=== PATIENT | female | born 1990 | race Caucasian/White ===

== ENCOUNTER → 2021-05-21 | Day surgery (SDC) | payer OTHER ==
[2021-05-21] VITALS (8 sets, daily range): BP systolic 108–114; BP diastolic 52–70
[~2021-05-21] VITALS: Ht 162.5 cm; Wt 83.0 kg
[~2021-05-21] MED LIST: GLUCAGON EMERGENCY 1 MG/KIT IV ONE; LACTATED RINGERS 1,000 ML IV PRN; LIDOCAINE PF 2% 5 ML (XYLOCAINE) VIAL ONE; ONDA4TAB11 PO; ONDANSETRON 4 MG/2 ML (SDV) Z0FRAN IVP ONE; ONDANSETRON 4 MG/2 ML (SDV) Z0FRAN ONE; ROCURONIUM 10 MG/ML 5 ML SYRINGE IV ONE; SEVOFLURANE (ULTANE) 15 ML INHAL SOLN ONE; SUCCINYLCHOLINE INJ 100 MG/5 ML SYR/VIAL ONE; proPOfol 200 MG/20 ML (DIPRIVAN) VIAL IV ONE
[2021-05-21 09:00] LABS: BASOPHILS % (AUTO) 0 % (0-10); EOSINOPHILS % (AUTO) 0 % (0-10); HEMATOCRIT 33 % (35-52); HEMOGLOBIN 11.6 g/dL (11.5-16.0); LYMPHOCYTES # (AUTO) 1.3 10^3/uL (1.0-4.0); LYMPHOCYTES % (AUTO) 22 % (12-44); MEAN CORPUSCULAR HEMOGLOBIN 29 pg (25-34); MEAN CORPUSCULAR HGB CONC 35 g/dL (32-36); MEAN CORPUSCULAR VOLUME 84 fL (80-99); MEAN PLATELET VOLUME 10.2 fL (9.0-12.2); MONOCYTES # (AUTO) 0.3 10^3/uL (0.0-1.0); MONOCYTES % (AUTO) 6 % (0-12); NEUTROPHILS # (AUTO) 4.2 10^3/uL (1.8-7.8); NEUTROPHILS % (AUTO) 71 % (42-75); PLATELET COUNT 175 10^3/uL (130-400); WHITE BLOOD COUNT 5.9 10^3/uL (4.3-11.0)
--- NOTE | 2021-05-21 09:01 | ED GI ---
General Stated Complaint: STEAK STUCK IN THROAT Source of Information: Patient Exam Limitations: No Limitations History of Present Illness Date Seen by Provider: May 21, 2021 Time Seen by Provider: 08:39 Initial Comments Patient to the ER by private conveyance from home with chief complaint of eating some steak last night at dinner and it became lodged. She has not been able to get any water to go down and stay down it immediately comes back up. She is not having any nausea. She not take any pills or medicines for it. She typically takes venlafaxine and vitamins. She is otherwise healthy G5, P4 at 17 weeks with an EDC of October 29, 2021. care is in [facility] where she lives. She has never had surgery or endoscopy before. She denies nausea. She has a mild headache and some pressure in her chest but no significant pain. Allergies and Home Medications Allergies Coded Allergies: No Known Drug Allergies (Unverified , 05/21/21) Patient Home Medication List Home Medication List Reviewed: Yes Review of Systems Review of Systems Constitutional: No chills, No diaphoresis EENTM: No Blurred Vision, No Double Vision Respiratory: Denies Cough, Denies Shortness of Air Cardiovascular: Denies Chest Pain, Denies Lightheadedness Gastrointestinal: Denies Constipated, Denies Diarrhea, Denies Nausea Genitourinary: Denies Burning, Denies Discharge Musculoskeletal: No back pain, No joint pain Skin: No pruritus, No rash Psychiatric/Neurological: Denies Anxiety, Denies Depressed, Denies Headache All Other Systems Reviewed Negative Unless Noted: Yes Past Jvptmvu-Tcwdnu-Aeanae Hx Patient Social History Tobacco Use?: No Use of E-Cig and/or Vaping dev: No Substance use?: No Physical Exam Vital Signs Vital Signs - First Documented 05/21/21 09:04 Temp 36.4 Pulse 98 Resp 18 B/P (MAP) 125/65 (85) Pulse Ox 98 O2 Delivery Room Air Capillary Refill : Height/Weight/BMI Height: '" Weight: lbs. oz. kg; BMI Method: General Appearance: WD/WN, mild distress HEENT: PERRL/EOMI, pharynx normal Neck: full range of motion, normal inspection Respiratory: no respiratory distress, no accessory muscle use Cardiovascular: normal peripheral pulses, regular rate, rhythm Gastrointestinal: normal bowel sounds, non tender, soft Extremities: normal inspection, no pedal edema Neurologic/Psychiatric: alert, normal mood/affect, oriented x 3 Skin: normal color, warm/dry Progress/Results/Core Measures Results/Orders Lab Results Laboratory Tests Test 05/21/21 08:53 Range/Units White Blood Count 5.9 4.3-11.0 10^3/uL Red Blood Count 3.95 3.80-5.11 10^6/uL Hemoglobin 11.6 11.5-16.0 g/dL Hematocrit 33 L 35-52 % Mean Corpuscular Volume 84 80-99 fL Mean Corpuscular Hemoglobin 29 25-34 pg Mean Corpuscular Hemoglobin Concent 35 32-36 g/dL Red Cell Distribution Width 14.1 10.0-14.5 % Platelet Count 175 130-400 10^3/uL Mean Platelet Volume 10.2 9.0-12.2 fL Immature Granulocyte % (Auto) 1 % Neutrophils (%) (Auto) 71 42-75 % Lymphocytes (%) (Auto) 22 12-44 % Monocytes (%) (Auto) 6 0-12 % Eosinophils (%) (Auto) 0 0-10 % Basophils (%) (Auto) 0 0-10 % Neutrophils # (Auto) 4.2 1.8-7.8 10^3/uL Lymphocytes # (Auto) 1.3 1.0-4.0 10^3/uL Monocytes # (Auto) 0.3 0.0-1.0 10^3/uL Eosinophils # (Auto) 0.0 0.0-0.3 10^3/uL Basophils # (Auto) 0.0 0.0-0.1 10^3/uL Immature Granulocyte # (Auto) 0.0 0.0-0.1 10^3/uL Sodium Level 139 135-145 MMOL/L Potassium Level 3.6 3.6-5.0 MMOL/L Chloride Level 109 H 98-107 MMOL/L Carbon Dioxide Level 17 L 21-32 MMOL/L Anion Gap 13 5-14 MMOL/L Blood Urea Nitrogen 7 7-18 MG/DL Creatinine 0.56 L 0.60-1.30 MG/DL Estimat Glomerular Filtration Rate 126 BUN/Creatinine Ratio 13 Glucose Level 84 70-105 MG/DL Calcium Level 8.7 8.5-10.1 MG/DL Corrected Calcium 8.9 8.5-10.1 MG/DL Total Bilirubin 0.3 0.1-1.0 MG/DL Aspartate Amino Transf (AST/SGOT) 14 5-34 U/L Alanine Aminotransferase (ALT/SGPT) 12 0-55 U/L Alkaline Phosphatase 39 L 40-136 U/L Total Protein 7.0 6.4-8.2 GM/DL Albumin 3.8 3.2-4.5 GM/DL My Orders Orders - YOANDY PULIDO Cbc With Automated Diff (05/21/21 08:49) Comprehensive Metabolic Panel (05/21/21 08:49) Glucagon Emergency Kit (Glucagon Emergen (05/21/21 09:00) Ondansetron Injection (Zofran Injectio (05/21/21 09:15) Medications Given in ED Current Medications Medications Dose Ordered Sig/Karen Route Start Time Stop Time Status Last Admin Dose Admin Glucagon 1 mg ONCE ONCE IV 05/21/21 09:00 05/21/21 09:01 DC 05/21/21 09:01 1 MG Ondansetron HCl 4 mg ONCE ONCE IVP 05/21/21 09:15 05/21/21 09:16 DC 05/21/21 09:13 4 MG Vital Signs/I&O 05/21/21 09:04 Temp 36.4 Pulse 98 Resp 18 B/P (MAP) 125/65 (85) Pulse Ox 98 O2 Delivery Room Air Progress Progress Note #1: Time: 09:00 Progress Note Glucagon IV ordered. Alerted Dr. Cesar who is getting ready to come in anyways and will stop in and see the patient. Progress Note #2: Time: 14:26 Progress Note General surgeon was able to easily retrieve the food embolus. Patient says she is feeling much better and ready to get up and go home and sleep. Her parents are going to come give her a ride. She is not having any nausea. heart tones are reported by staff. Consults : Consulting Physician: MARTITA CESAR DO Consults Notes 1105: Dr. Cesar saw the patient agrees to take patient to endoscopy outpatient. Departure Impression Primary Impression: Food impaction of esophagus Qualified Codes: T18.128A - Food in esophagus causing other injury, initial encounter Disposition: HOME, SELF-CARE Condition: Stable Departure-Patient Inst. Decision time for Depature: 14:26 Referrals: MARTITA CESAR DO NO,LOCAL PHYSICIAN (PCP) Primary Care Physician Patient Instructions: Food Obstruction Add. Discharge Instructions: Stick to a liquid diet until your nausea and pain has resolved and then you can advance to a soft and then full diet. Follow-up as directed. Zofran 1 tablet under the tongue every 6 hours as necessary for nausea and/or vomiting Scripts Ondansetron (Ondansetron Odt) 4 Mg Tab.rapdis 4 MG PO Q6H PRN for NAUSEA/VOMITING, #8 TAB 0 Refills Prov: YOANDY PULIDO 05/21/21 YOANDY PULIDO May 21, 2021 09:01
[2021-05-21 09:09] LABS: ALBUMIN 3.8 GM/DL (3.2-4.5)
[2021-05-21 09:10] LABS: POTASSIUM 3.6 MMOL/L (3.6-5.0)
[2021-05-21 09:11] LABS: CALCIUM 8.7 MG/DL (8.5-10.1)
[2021-05-21 09:14] LABS: BILIRUBIN,TOTAL 0.3 MG/DL (0.1-1.0)
[2021-05-21 09:15] LABS: CREATININE SERUM 0.56 MG/DL (0.60-1.30)
--- NOTE | 2021-05-21 11:38 | Consultation - Surgery ---
History of Present Illness History of Present Illness Patient Consulted On(romain/time) 05/21/21 11:33 Time Seen by Provider: 10:41 History of Present Illness Surgery asked to consult regarding food bolus. HPI per ED: Patient to the ER by private conveyance from home with chief complaint of eating some steak last night at dinner and it became lodged. She has not been able to get any water to go down and stay down it immediately comes back up. She is not having any nausea. She not take any pills or medicines for it. She typically takes venlafaxine and vitamins. She is otherwise healthy G5, P4 at 17 weeks with an EDC of October 29, 2021. care is in [facility] where she lives. She has never had surgery or endoscopy before. She denies nausea. She has a mild headache and some pressure in her chest but no significant pain. When I saw pt she was still uncomfortable and unable to swallow anything. She states this has happened before, "but usually it goes down or comes up". Had nausea until she was given Zofran in ER. Pain and feeling of something stuck, pt pointed to mid-sternum. Allergies and Home Medications Allergies Coded Allergies: No Known Drug Allergies (Unverified , 05/21/21) Patient Home Medication List Home Medication List Reviewed: Yes Past Sssuuwk-Rddhhv-Nzecqh Hx Patient Social History Smoking Status: Never a Smoker Alcohol Use?: No Have you traveled recently?: No Surgeries History of Surgeries: Yes (wisdom teeth) Surgeries: Orthopedic (left elbow) Respiratory History of Respiratory Disorde: No Cardiovascular History of Cardiac Disorders: No Neurological History of Neurological Disord: No Reproductive System : Yes Genitourinary History of Genitourinary Disor: No Gastrointestinal History of Gastrointestinal Di: Yes (hx of previous esophageal obstruction) Gastrointestinal Disorders: Gastroesophageal Reflux Musculoskeletal History of Musculoskeletal Dis: Yes Musculoskeletal Disorders: Scoliosis (with kyphosis) Endocrine History of Endocrine Disorders: No HEENT History of HEENT Disorders: No Loss of Vision: Denies Hearing Impairment: Denies Cancer History of Cancer: No Psychosocial History of Psychiatric Problem: No Family Medical History Significant Family History: Diabetes (mother), Hypertension (mother, father and brother) Review of Systems-General Constitutional: No malaise, No weakness EENTM: throat swelling; No blurred vision, No double vision, No epistaxis Respiratory: No cough, No dyspnea on exertion Cardiovascular: No chest pain, No palpitations Gastrointestinal: No abdominal pain, No hematemesis; nausea, vomiting Genitourinary: No dysuria, No frequency, No hematuria Musculoskeletal: No joint pain, No joint swelling Skin: No change in color, No change in hair/nails Psychiatric/Neurological: Denies Anxiety, Denies Depressed, Denies Seizure, Denies Tremors Other pt denies hx of bleeding or bruising abnormalities Physical Exam-General Problems Physical Exam Vital Signs Vital Signs - First Documented 05/21/21 09:04 Temp 36.4 Pulse 98 Resp 18 B/P (MAP) 125/65 (85) Pulse Ox 98 O2 Delivery Room Air Capillary Refill : Less Than 3 Seconds General Appearance: WD/WN, mild distress Eyes: Bilateral Eye PERRL, Bilateral Eye EOMI HEENT: pharynx normal; No scleral icterus (R), No scleral icterus (L) Neck: non-tender, supple Respiratory: chest non-tender, lungs clear, normal breath sounds, no respiratory distress, no accessory muscle use Cardiovascular: regular rate, rhythm, no murmur Gastrointestinal: non tender, soft, no organomegaly, other (gravid abdomen) Back: no CVA tenderness, no vertebral tenderness Extremities: no pedal edema, no calf tenderness, normal capillary refill Neurologic/Psychiatric: windows application administrator II-XII nml as tested, alert, oriented x 3 Skin: normal color, warm/dry Lymphatic: no adenopathy (neck, axilla or groin) Data Review Labs Laboratory Tests 05/21/21 08:53: White Blood Count 5.9, Red Blood Count 3.95, Hemoglobin 11.6, Hematocrit 33L, Mean Corpuscular Volume 84, Mean Corpuscular Hemoglobin 29, Mean Corpuscular Hemoglobin Concent 35, Red Cell Distribution Width 14.1, Platelet Count 175, Mean Platelet Volume 10.2, Immature Granulocyte % (Auto) 1, Neutrophils (%) (Auto) 71, Lymphocytes (%) (Auto) 22, Monocytes (%) (Auto) 6, Eosinophils (%) (Auto) 0, Basophils (%) (Auto) 0, Neutrophils # (Auto) 4.2, Lymphocytes # (Auto) 1.3, Monocytes # (Auto) 0.3, Eosinophils # (Auto) 0.0, Basophils # (Auto) 0.0, Immature Granulocyte # (Auto) 0.0, Sodium Level 139, Potassium Level 3.6, Chloride Level 109H, Carbon Dioxide Level 17L, Anion Gap 13, Blood Urea Nitrogen 7, Creatinine 0.56L, Estimat Glomerular Filtration Rate 126, BUN/Creatinine Ratio 13, Glucose Level 84, Calcium Level 8.7, Corrected Calcium 8.9, Total Bilirubin 0.3, Aspartate Amino Transf (AST/SGOT) 14, Alanine Aminotransferase (ALT/SGPT) 12, Alkaline Phosphatase 39L, Total Protein 7.0, Albumin 3.8 Assessment/Plan Assessment/Plan Assessment/Plan Esophageal Obstruction secondary to food bolus 16w 4d Pt will need an EGD with possible biopsy and possible removal of food bolus. I discussed with the pt the risks and complications not limited to pain, bleeding, infection and even esophageal perforation. We also talked about developmental problems with fetus secondary to anesthesia and even pre- term labor. The second trimester is better time to do surgery if it needs to be done. She understood all these risks and has consented to surgery. MARTITA BREWSTER DO May 21, 2021 11:38
--- NOTE | 2021-05-21 12:41 | Progress Note-Post Operative ---
Post-Operative Progess Note Surgeon (s)/Cattle Alley Worker (s) Surgeon MARTITA BREWSTER DO Cattle Alley Worker: none Pre-Operative Diagnosis Dysphagia, Food bolus Post-Operative Diagnosis Same plus Gastritis Esophagitis Procedure & Operative Findings Date of Procedure 05/21/21 Procedure Performed/Findings 1) EGD with removal of food bolus 2) EGD with bx PROCEDURE NOTE: After informed consent was obtained, the patient was brought to the endoscopy suite, placed in bed in left lateral decubitus position. She was intubated by the CHARGEBACK ANALYST for safety and then monitored vitals the entire time, heart rate, blood pressure and pulse ox and the scope was inserted down the mouth through the esophagus into the stomach. On the way down found the piece of steak stuck in the lower 1/3 of Esophagus. Placed a Condon net down the scope and able to get around portion of steak and then started pulling it out. A large portion of the steak broke off and stayed in the esophagus. Pulled all the way and removed the portion of steak I was able to grab. Put the scope back down and then able to gently push the rest of the steak into the stomach. Next pushed past the antrum into the duodenum. Duodenum looked good. Pulled back and noted some mild gastritis and did a biopsy of the antrum. Then retroflexed the scope, did not see a hiatal hernia but did see some more inflammation. Took a picture of this and then did a biopsy of the cardia. Finally pulled the scope into the GE junction, noted some esophagitis and took another picture and then did a biopsy of the GE junction. Pushed the scope back into the stomach, suctioned all the air out of the stomach. At this point pulled the scope up the esophagus, taking pictures; did not note a severe stricture, the scope had easily passed into the stomach. Finally completely removed the scope from the mouth. The patient tolerated the procedure, and she recovered in PACU. Anesthesia Type GET Estimated Blood Loss Estimated blood loss (mL): scant Specimens/Packing Specimens Removed portion of steak antral bx cardia bx GE jxn bx MARTITA BREWSTER DO May 21, 2021 12:41
--- NOTE | 2021-05-21 12:43 | Endoscopy Discharge Instruct ---
Endo Procedure/Findings Findings 1.: Gastritis 2.: Other Findings (Esophagitis) 3.: Other Findings (?? very small stricture) Discharge Instructions - Activity: You might feel a little sleepy until tomorrow. This is due to the medicine you received to relax you. Until tomorrow, you should: NOT drive a car, operate machinery or power tools. NOT drink any alcoholic beverages. NOT make any important decisions or sign importortant papers. Do not return to work until tomorrow, unless otherwise instructed. Resume prev ious activities tomorrow. Diet: Start by taking liquids. If you tolerate liquids, advance to solid food. 1.: EGD in 1 year Notify Physician - If you experience excessive bleeding, unusual abdominal pain, fever, or chest pain, contact your doctor immediately. MARTITA BREWSTER DO May 21, 2021 12:42
--- NOTE | 2021-05-21 12:50 | Anesthesia-General Post-Op ---
General Significant Intra-Op Events Notes FHT assessed pre/post operative, documented and WNL Patient Condition Mental Status/LOC: Same as Preop Cardiovascular: Satisfactory Nausea/Vomiting: Absent Respiratory: Satisfactory Pain: Controlled Complications: Absent Post Op Complications Complications None Follow Up Care/Instructions Patient Instructions None needed. Anesthesia/Patient Condition Patient Condition Patient is doing well, no complaints, stable vital signs, no apparent adverse anesthesia problems. No complications reported per nursing. CHANDRAKANT DONIS CRNA May 21, 2021 12:50
== END ==
LOC: EDUNIT# 08:36 → ER 08:39 → ENDO 11:15
PROVIDERS: ATTEND Surgery
DX: T18.128A Food in esophagus causing other injury, initial encounter (principal); K21.00 Gastro-esophageal reflux disease with esophagitis, without bleeding; K29.70 Gastritis, unspecified, without bleeding
CPT/HCPCS: 36415; 80053; 85025; 88305; 99281